=== PATIENT | female | born 1925 | race Caucasian/White ===

== ENCOUNTER → 2016-05-06 | Outpatient (REF) | payer MEDICARE ==
[~2016-05-06] MED LIST: ALLO300T2 PO; ALPR.25T PO; CHOL5POW MC; CYAN10007 PO; FERR325C PO; FLUO20SO2 PO; GEMF600T3 PO; GLUC-113 PO; GLUC100016 PO; HCT25T PO; HYDR-33 PO; HYDR-3702 PO; LACT1CAP62 PO; MAGN250T7 PO; MELO-249 PO; MGX400T PO; MULT-19 PO; MULT1TAB PO; NAPR220T76 PO; OMEP20CA12 PO; POLY17PO6 PO; SOLI5TAB2 PO; WARF6TAB6 PO; WRF5T PO
== END ==
LOC: LAB 11:27
PROVIDERS: ATTEND Family Medicine
DX: I26.09 Other pulmonary embolism with acute cor pulmonale (principal)
CPT/HCPCS: 85610

== ENCOUNTER → 2016-05-18 | Outpatient (REF) | payer MEDICARE | LOC: LAB 15:48 | PROVIDERS: ATTEND Family Medicine | DX: Z51.81 Encounter for therapeutic drug level monitoring (principal); Z79.01 Long term (current) use of anticoagulants | CPT/HCPCS: 85610 ==

== ENCOUNTER → 2016-06-14 | Outpatient (REF) | payer MEDICARE | LOC: LAB 12:51 | PROVIDERS: ATTEND Family Medicine | DX: Z86.711 Personal history of pulmonary embolism (principal) | CPT/HCPCS: 85610 ==

== ENCOUNTER → 2016-07-08 | Outpatient (REF) | payer MEDICARE ==
[2016-07-08 11:02] LABS: ALBUMIN 3.7 g/dL (3.4-5.0); ALKALINE PHOSPHATASE 53 U/L (38-126); ANION GAP 13.4 MEQ/L (3-15); BUN/CREATININE RATIO 26 (10-20); CALCULATED IONIZED CALCIUM 4.3 mg/dL (3.8-4.6); TOTAL PROTEIN 6.7 g/dL (6.4-8.5)
== END ==
LOC: LAB 09:00
PROVIDERS: ATTEND Family Medicine
DX: E11.9 Type 2 diabetes mellitus without complications (principal); Z86.711 Personal history of pulmonary embolism
CPT/HCPCS: 80053; 80061; 85610

== ENCOUNTER → 2016-07-21 | Outpatient (REF) | payer MEDICARE | LOC: LAB 13:34 | PROVIDERS: ATTEND Family Medicine | DX: Z86.711 Personal history of pulmonary embolism (principal) | CPT/HCPCS: 85610 ==

== ENCOUNTER → 2016-08-04 | Outpatient (REF) | payer MEDICARE | LOC: LAB 13:02 | PROVIDERS: ATTEND Family Medicine | DX: Z51.81 Encounter for therapeutic drug level monitoring (principal); Z79.01 Long term (current) use of anticoagulants; Z86.711 Personal history of pulmonary embolism | CPT/HCPCS: 85610 ==

== ENCOUNTER → 2016-08-17 | Outpatient (REF) | payer MEDICARE | LOC: LAB 11:55 | PROVIDERS: ATTEND Family Medicine | DX: Z86.711 Personal history of pulmonary embolism (principal) | CPT/HCPCS: 85610 ==

== ENCOUNTER → 2016-08-25 | Outpatient (REF) | payer MEDICARE | LOC: LAB 11:49 | PROVIDERS: ATTEND Family Medicine | DX: Z53.9 Procedure and treatment not carried out, unspecified reason (principal) ==

== ENCOUNTER → 2016-08-29 | Outpatient (REF) | payer MEDICARE | LOC: LAB 16:18 | PROVIDERS: ATTEND Family Medicine | DX: Z86.711 Personal history of pulmonary embolism (principal) | CPT/HCPCS: 85610 ==

== ENCOUNTER 2016-09-16 08:50 | Outpatient (RCR) | payer MEDICARE | END 2016-09-27 17:07 | disposition home or self-care (01) | LOC: DT 08:50 | PROVIDERS: ATTEND Family Medicine | DX: E11.65 Type 2 diabetes mellitus with hyperglycemia (principal) | CPT/HCPCS: 97802 ==

== ENCOUNTER → 2016-09-27 | Outpatient (REF) | payer MEDICARE | LOC: LAB 15:55 | PROVIDERS: ATTEND Family Medicine | DX: Z51.81 Encounter for therapeutic drug level monitoring (principal) | CPT/HCPCS: 85610 ==